=== PATIENT | male | born 1950 | race Caucasian/White ===

== ENCOUNTER 2017-05-15 09:54 | Outpatient (CLI) | payer MEDICARE ==
[~2017-05-15 09:54] MED LIST: Gadobenate Dimeglumine 529 MG/1 ML (20ML VIAL) ONE
--- NOTE | 2017-05-15 12:28 | MRI ---
MRI OF THE BRAIN WITHOUT AND WITH CONTRAST. 05/15/17 COMPARISON: None. HISTORY: Diplopia for a week. TECHNIQUE: Multiplanar and multisequence MR images were obtained in the brain without and with IV contrast. FINDINGS: There are a few scattered foci of high T2/FLAIR signal in the subcortical and periventricular white matter, likely secondary to small vessel ischemic disease. No restricted diffusion is seen to sugges t an acute infarction. No abnormal enhancement is seen on this examination. There is no evidence of hydrocephalus, intracranial hemorrhage or extra-axial fluid collection. The expected flow voids are present. The corpus callosum, pituitary, and craniocervical junction are unr emarkable. The calvarium and overlying soft tissues are unremarkable. The visualized paranasal sinuses and mast oid air cells are well aerated. IMPRESSION: Small vessel ischemic disease without acute intracranial abnormality. POS: [facility]
== END 2017-05-15 09:55 | disposition home or self-care (01) ==
LOC: SCSMRI 09:54
PROVIDERS: ATTEND Psychiatry & Neurology Neurology
DX: H53.2 Diplopia (principal); G93.89 Other specified disorders of brain
CPT/HCPCS: 70553; A9579